=== PATIENT | female | born 1975 | race Caucasian/White ===

== ENCOUNTER 2016-12-23 18:42 | Inpatient (IN) | payer BC ==
[2016-12-23 18:47] VITALS: BMI 25.7
--- NOTE | 2016-12-23 19:16 | PDOC ---
History of Present Illness - General Chief Complaint: Vaginal Bleeding Stated Complaint: ABDOMINAL PAIN Time Seen by Provider: 12/23/16 19:14 - History of Present Illness Initial Comments: 12/23/16 19:16 Past History - Past Medical History Allergies/Adverse Reactions: Allergies Allergy/AdvReac Type Severity Reaction Status Date / Time meperidine HCl [From Demerol] AdvReac Vomiting Verified 12/23/16 18:47 Home Medications: Ambulatory Orders Levothyroxine [Synthroid -] 112 mcg PO DAILY 02/23/14 Alprazolam 0.5 mg PO DAILY 05/26/15 Mesalamine [Apriso] 4 cap PO DAILY 05/26/15 Olopatadine HCl [Pataday] 1 drop IO DAILY 05/26/15 GI Disorders: Yes (ULCERATIVE COLITIS, CHRONIC ULCERATIVE PROCTITIS) Seizures: Yes Thyroid Disease: Yes (HYPO) - Surgical History Orthopedic Surgery: Yes (LT KNEE) - Suicide/Smoking/Psychosocial Hx Smoking Status: No Smoking History: Never smoked Have you smoked in the past 12 months: No Number of Cigarettes Smoked Daily: 0 Hx Alcohol Use: No Drug/Substance Use Hx: No Substance Use Type: None *Physical Exam - Vital Signs Last Vital Signs Temp Pulse Resp BP Pulse Ox 97.9 F 76 20 121/68 99 12/23/16 18:44 12/23/16 18:44 12/23/16 18:44 12/23/16 18:44 12/23/16 18:44
[2016-12-23] MEDS ORDERED: ONDANSETRON 4 MG/2 ML VIAL IVPUSH ONE (19:22)
[2016-12-23] MEDS ORDERED: KETOROLAC TROMETHAMINE 30 MG/1 ML VIAL IVPUSH ONE (19:22)
[2016-12-23] MEDS ORDERED: LACTATED RINGERS SOLUTION 1,000 ML IV SCH ×3 (19:30→23:45)
[2016-12-23] MEDS ORDERED: KETOROLAC TROMETHAMINE 30 MG/1 ML VIAL ONE ×2 (19:38→23:45)
[2016-12-23] MEDS ORDERED: ONDANSETRON 4 MG/2 ML VIAL ONE ×2 (19:38→23:30)
[2016-12-23] MEDS ORDERED: morphine CARPU-JECT 2 MG/1 ML DISP.SYRIN IVPUSH ONE (19:42)
[2016-12-23] MEDS ORDERED: morphine CARPU-JECT 2 MG/1 ML DISP.SYRIN ONE (19:43)
[2016-12-23 19:44] LABS: BASOPHIL 0.3 % (0-2.0); EOSINOPHIL 1.1 % (0-4.5); MCH 29.5 pg (25.7-33.7); MCHC 34.2 g/dl (32.0-36.0); MEAN CELL VOLUME 86.2 fl (80-96); MEAN PLT VOLUME 7.2 fl (7.5-11.1); NEUTROPHILS 83.1 % (42.8-82.8); PLATELET COUNT 315 K/MM3 (134-434); RDW 12.1 % (11.6-15.6); WHITE BLOOD COUNT 11.4 K/mm3 (4.0-10.0)
--- NOTE | 2016-12-23 19:47 | PDOC ---
History of Present Illness - History of Present Illness Initial Comments: 12/23/16 19:41 CHIEF COMPLAINT: miscarriage HISTORY OF PRESENT ILLNESS: 40 yo A1 8 week F with hx of ulcerative colitis presents to ED with vaginal bleeding and cramping since last night. Patient reports she starting spotting last night and the cramping began this morning and "got unbearable this afternoon." Patient states her LMP was 10/08 and EGA by ultrasound dating was 8 weeks today at her OB MD Beach's office around 3:30-4pm today. Patient reports Dr. Beach told her she was "definitely having a miscarriage" and that it would pass, but tonight when she went home the pain was so unbearable she called him again and she was informed that she "should get it suctioned out instead of taking the medication to get it out." Patient reports she had a miscarriage approximately 10 years ago at 6 wks but "it wasn't like this at all." PAST MEDICAL HISTORY: Denies past medical history FAMILY HISTORY: Denies SOCIAL HISTORY: Denies tobacco, alcohol, illicit drug use. SURGICAL HISTORY: knee surgeries ALLERGIES: Demerol REVIEW OF SYSTEMS General/Constitutional: Denies fever or chills. Denies weakness, weight change. HEENT: Denies change in vision. Denies ear pain or discharge. Denies sore throat. Cardiovascular: Denies chest pain or shortness of breath. Respiratory: Denies cough, wheezing, or hemoptysis. Gastrointestinal: Significant abdominal cramping. Genitourinary: Vaginal bleeding since last night. Musculoskeletal: Denies joint or muscle swelling or pain. Denies neck or back pain. Skin and breasts: Denies rash or easy bruising. Neurologic: Denies headache, vertigo, loss of consciousness, or loss of sensation. PHYSICAL EXAM General Appearance: Very uncomfortable appearing, writing in pain. HEENT: EOMI, PERRLA. No conjunctival pallor. No photophobia, scleral icterus. Respiratory/Chest: Lungs CTAB. No shortness of breath, chest tenderness, respiratory distress, accessory muscle use. No crackles, rales, rhonchi, stridor , wheezing, dullness Cardiovascular: RRR. S1, S2. Vascular Pulses: Dorsalis-Pedis (R): 2+, Dorsalis-Pedis (L): 2+ Gastrointestinal/Abdominal: Normal bowel sounds. Abdomen soft, non-distended. No tenderness or rebound tenderness. No organomegaly, pulsatile mass, guarding , hernia, hepatomegaly, splenomegaly. Genitourinary: Active vaginal bleeding. Musculoskeletal/Extremities: Normal inspection. FROM of all extremities, normal capillary refill. Pelvis Stable. No CVA tenderness. No tenderness to extremities, pedal edema, swelling, erythema or deformity. Integumentary: Appropriate color, dry, warm. 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 Fully oriented, alert. Appropriate mood/affect. Motor strength 5/5. No appreciable EOM palsy, facial droop or sensory deficit. <Arabella Lima - Last Filed: 12/23/16 21:20> <Alejandrina Miller - Last Filed: 12/23/16 22:40> - General Chief Complaint: Vaginal Bleeding Stated Complaint: ABDOMINAL PAIN Time Seen by Provider: 12/23/16 19:14 Past History - Past Medical History GI Disorders: Yes (ULCERATIVE COLITIS, CHRONIC ULCERATIVE PROCTITIS) Seizures: Yes Thyroid Disease: Yes (HYPO) - Surgical History Orthopedic Surgery: Yes (LT KNEE) - Suicide/Smoking/Psychosocial Hx Smoking Status: No Smoking History: Never smoked Have you smoked in the past 12 months: No Number of Cigarettes Smoked Daily: 0 Hx Alcohol Use: No Drug/Substance Use Hx: No Substance Use Type: None <Arabella Lima - Last Filed: 12/23/16 21:20> <Alejandrina Miller - Last Filed: 12/23/16 22:40> - Past Medical History Allergies/Adverse Reactions: Allergies Allergy/AdvReac Type Severity Reaction Status Date / Time meperidine HCl [From Demerol] AdvReac Vomiting Verified 12/23/16 18:47 Home Medications: Ambulatory Orders Levothyroxine [Synthroid -] 112 mcg PO DAILY 02/23/14 Alprazolam 0.5 mg PO DAILY 05/26/15 Mesalamine [Apriso] 4 cap PO DAILY 05/26/15 Olopatadine HCl [Pataday] 1 drop IO DAILY 05/26/15 *Physical Exam - Vital Signs Last Vital Signs Temp Pulse Resp BP Pulse Ox 97.9 F 76 20 121/68 99 12/23/16 18:44 12/23/16 18:44 12/23/16 18:44 12/23/16 18:44 12/23/16 18:44 <Arabella Lima - Last Filed: 12/23/16 21:20> - Vital Signs Last Vital Signs Temp Pulse Resp BP Pulse Ox 97.9 F 76 20 121/68 99 12/23/16 18:44 12/23/16 18:44 12/23/16 18:44 12/23/16 18:44 12/23/16 18:44 <Alejandrina Miller - Last Filed: 12/23/16 22:40> ED Treatment Course - LABORATORY CBC & Chemistry Diagram: 12/23/16 19:30 12/23/16 19:30 <Arabella Lima - Last Filed: 12/23/16 21:20> - LABORATORY CBC & Chemistry Diagram: 12/23/16 19:30 12/23/16 19:30 - ADDITIONAL ORDERS Additional order review: Laboratory Results 12/23/16 12/23/16 12/23/16 19:40 19:30 19:30 PT with INR 12.60 H INR 1.12 PTT (Actin FS) 28.2 Sodium Potassium Chloride Carbon Dioxide Anion Gap BUN Creatinine Creat Clearance w eGFR Random Glucose Calcium Total Bilirubin AST ALT Alkaline Phosphatase Total Protein Albumin Beta HCG, Quant 5778.3 Blood Type A POSITIVE Antibody Screen Negative 12/23/16 19:30 PT with INR INR PTT (Actin FS) Sodium 137 Potassium 3.6 Chloride 105 Carbon Dioxide 24 Anion Gap 8 BUN 9 Creatinine 0.6 Creat Clearance w eGFR > 60 Random Glucose 125 H D Calcium 8.7 Total Bilirubin 0.4 D AST 19 ALT 23 Alkaline Phosphatase 45 Total Protein 7.1 Albumin 4.1 Beta HCG, Quant Blood Type Antibody Screen 12/23/16 19:30 RBC 4.20 MCV 86.2 MCHC 34.2 RDW 12.1 MPV 7.2 L Neutrophils % 83.1 H D Lymphocytes % 10.9 D Monocytes % 4.6 Eosinophils % 1.1 Basophils % 0.3 - Medications Given in the ED: ED Medications Discontinued Medications Generic Name Dose Route Start Last Admin Trade Name Freq PRN Reason Stop Dose Admin Hydromorphone HCl 0.5 mg 12/23/16 19:56 12/23/16 21:00 Dilaudid Injection - IVPUSH 12/23/16 19:57 0.5 mg ONCE ONE Administration Hydromorphone HCl 1 mg 12/23/16 20:13 12/23/16 20:47 Dilaudid Injection - IVPUSH 12/23/16 20:14 1 mg ONCE ONE Administration Hydromorphone HCl 1 mg 12/23/16 21:19 12/23/16 21:29 Dilaudid Injection - IVPUSH 12/23/16 21:20 1 mg ONCE ONE Administration Ketorolac Tromethamine 30 mg 12/23/16 19:22 12/23/16 19:35 Toradol Injection - IVPUSH 12/23/16 19:23 30 mg ONCE ONE Administration Morphine Sulfate 2 mg 12/23/16 19:42 12/23/16 20:26 Morphine Injection - IVPUSH 12/23/16 19:43 2 mg ONCE ONE Administration Ondansetron HCl 8 mg 12/23/16 19:22 12/23/16 19:50 Zofran Injection IVPUSH 12/23/16 19:23 8 mg ONCE ONE Administration <Alejandrina Miller - Last Filed: 12/23/16 22:40> Medical Decision Making - Medical Decision Making 12/23/16 20:10 40 yo 8 week F presents to ED with vaginal bleeding and cramping since last night. -CBC, CMP, PT/PTT/INR, T&S -LR -Toradol, morphine for pain control -Germán Discussed case with on-call OB MD Loaiza. Dr. Loaiza states she will come in to take patient to OR. Patient reassessed, still in significant amount of pain. -Dilaudid 0.5 Patient reassessed 20 minutes later, still writing in significant amount of pain -Dilaudid 1 mg 12/23/16 20:30 Patient reassessed, at this time pain is controlled. 12/23/16 21:20 Dr. Loaiza evaluated patient in ED. Patient will be transferred to OR on arrival of surgical team. <Arabella Lima - Last Filed: 12/23/16 21:20> *DC/Admit/Observation/Transfer <Arabella Lima - Last Filed: 12/23/16 21:20> - Discharge Dispostion Admit: Yes <Alejandrina Miller - Last Filed: 12/23/16 22:40> Diagnosis at time of Disposition: Incomplete spontaneous
[2016-12-23] MEDS ORDERED: HYDROmorphone HCL CARPU-JECT 1 MG/1 ML DISP.SYRIN IVPUSH ONE ×3 (19:56→21:19)
[2016-12-23] MEDS ORDERED: HYDROmorphone HCL CARPU-JECT 1 MG/1 ML DISP.SYRIN ONE ×3 (19:57→21:21)
[2016-12-23 20:04] LABS: INR 1.12 (0.82-1.09); PROTHROMBIN TIME (PATIENT) 12.6 SEC (9.98-11.88)
[2016-12-23 20:06] LABS: ACTIVATED PTT 28.2 SECONDS (26.9-34.4)
[2016-12-23 20:17] LABS: ALBUMIN 4.1 g/dl (3.4-5.0); ALK PHOS 45 U/L (45-117); ANION GAP 8 (8-16); BILIRUBIN,TOTAL 0.4 mg/dL (0.2-1.0); CALCIUM 8.7 mg/dL (8.5-10.1); CO2 24 mmol/L (21-32); CREATININE 0.6 mg/dL (0.55-1.02); GLUCOSE,RANDOM 125 mg/dL (74-106); SGOT/AST 19 U/L (15-37); SGPT/ALT 23 U/L (12-78); TOT PROT 7.1 g/dl (6.4-8.2)
--- NOTE | 2016-12-23 22:28 | CON.OBG ---
Consult Consult Specialty:: OBGYN Referred by:: Arabella Lima Reason for Consultation:: Abdominal pain in - History of Present Illness Chief Complaint: Abdominal pain with vaginal bleeding History of Present Illness: 40 yo , presents to ER c/o vaginal bleeding in . She also c/o severe abdominal pain. She admits to talk to private OB /ROOM CLERK today who recommended a suction D&C. - History Source History Provided By: Patient Limitations to Obtaining History: No Limitations - Past Medical History ...: Yes - Past Surgical History Past Surgical History: Yes: None - Alcohol/Substance Use Hx Alcohol Use: No History of Substance Use: reports: None - Smoking History Smoking history: Never smoked Have you smoked in the past 12 months: No Aproximately how many cigarettes per day: 0 - Social History History of Recent Travel: No Home Medications - Allergies Allergies/Adverse Reactions: Allergies Allergy/AdvReac Type Severity Reaction Status Date / Time meperidine HCl [From Demerol] AdvReac Vomiting Verified 12/23/16 18:47 - Home Medications Home Medications: Ambulatory Orders Levothyroxine [Synthroid -] 112 mcg PO DAILY 02/23/14 Alprazolam 0.5 mg PO DAILY 05/26/15 Mesalamine [Apriso] 4 cap PO DAILY 05/26/15 Olopatadine HCl [Pataday] 1 drop IO DAILY 05/26/15 Family Disease History - Family Disease History Family History: Unremarkable Review of Systems - Review of Systems Constitutional: reports: No Symptoms Eyes: reports: No Symptoms HENT: reports: No Symptoms Neck: reports: No Symptoms Cardiovascular: reports: No Symptoms Respiratory: reports: No Symptoms Gastrointestinal: reports: No Symptoms Genitourinary: reports: No Symptoms Breasts: reports: No Symptoms Reported Musculoskeletal: reports: No Symptoms Neurological: reports: No Symptoms Endocrine: reports: No Symptoms Hematology/Lymphatic: reports: No Symptoms Psychiatric: reports: No Symptoms Pain Intensity: 8 Physical Exam-ROOM CLERK Vital Signs: Vital Signs Temperature 97.9 F 12/23/16 18:44 Pulse Rate 76 12/23/16 18:44 Respiratory Rate 20 12/23/16 18:44 Blood Pressure 121/68 12/23/16 18:44 O2 Sat by Pulse Oximetry (%) 99 12/23/16 18:44 Constitutional: Yes: Well Nourished Eyes: Yes: Conjunctiva Clear HENT: Yes: Atraumatic Neck: Yes: Supple Cardiovascular: Yes: Regular Rate and Rhythm Respiratory: Yes: Regular Gastrointestinal: Yes: Normal Bowel Sounds External Genitalia: Yes: Bleeding Vaginal Exam: Yes: Bleeding Cervix: Yes: Bleeding Neurological: Yes: Alert, Oriented ...Motor Strength: WNL Psychiatric: Yes: Alert, Oriented Labs: CBC, BMP 12/23/16 19:30 12/23/16 19:30 Problem List - Problems (1) Incomplete with delayed or excessive hemorrhage Code(s): O03.1 - DELAYED OR EXCESSIVE HEMOR FOLLOWING INCMPL SPON Assessment/Plan Incomplete Vaginal bleeding Pre op for suction D&C
--- NOTE | 2016-12-23 22:33 | OP ---
Operative Note - Note: Operative Date: 12/23/16 Pre-Operative Diagnosis: Incomplete Operation: Suction D&C Findings: Open cervical os with large blood clot at the vagina Post-Operative Diagnosis: Same as Pre-op Surgeon: Christa Loaiza Anesthesia: General Specimens Removed: Product of conception Estimated Blood Loss (mls): 50 Operative Report Dictated: Yes
[2016-12-23] MEDS ORDERED: SCOPOLAMINE HYDROBROMIDE 1 PATCH PATCH.TD72 ONE (23:10)
[2016-12-23] MEDS ORDERED: PROPOFOL 20 ML ONE (23:12)
[2016-12-23] MEDS ORDERED: MIDAZOLAM HCL 2 MG/2 ML SINGLE DOSE VIAL ONE (23:12)
[2016-12-23] MEDS ORDERED: DEXAMETHASONE SOD PHOSPHATE 4 MG/1 ML VIAL ONE (23:26)
[2016-12-23] MEDS ORDERED: ceFAZolin SODIUM 1 GM VIAL ONE (23:27)
--- NOTE | 2016-12-23 23:51 | DS ---
Physical Examination Vital Signs: Vital Signs Temperature 97.3 F L 12/23/16 22:30 Pulse Rate 62 12/23/16 22:30 Respiratory Rate 18 12/23/16 22:30 Blood Pressure 114/58 12/23/16 22:30 O2 Sat by Pulse Oximetry (%) 99 12/23/16 18:44 Constitutional: Yes: Well Nourished Eyes: Yes: Conjunctiva Clear HENT: Yes: Atraumatic Neck: Yes: Supple Cardiovascular: Yes: Regular Rate and Rhythm Respiratory: Yes: Regular Gastrointestinal: Yes: Normal Bowel Sounds Neurological: Yes: Alert, Oriented ...Motor Strength: WNL Psychiatric: Yes: Alert, Oriented Discharge Summary Reason For Visit: INCOMPLETE WITH DELAYED OR EXCESSIVE Current Active Problems Incomplete with delayed or excessive hemorrhage (Acute) Incomplete miscarriage (Acute) Procedures: Principal: Suction D&C Hospital Course: Patient admitted for incomplete . She was taken to operating room for suction D&C. Condition: Good - Instructions Diet, Activity, Other Instructions: Regular diet No douching, no sexual intercourse x 2 weeks F/U with MD in 2 weeks Referrals: Glenys Tellez [Primary Care Provider] - Disposition: HOME - Home Medications Comprehensive Discharge Medication List: Ambulatory Orders Levothyroxine [Synthroid -] 112 mcg PO DAILY 02/23/14 Alprazolam 0.5 mg PO DAILY 05/26/15 Mesalamine [Apriso] 4 cap PO DAILY 05/26/15 Olopatadine HCl [Pataday] 1 drop IO DAILY 05/26/15
[2016-12-23] MEDS ORDERED: PROMETHAZINE HCL 25 MG/1 ML VIAL IVPUSH PRN (23:55)
[2016-12-24] MEDS ORDERED: ACETAMINOPHEN 325 MG TABLET (FP) PO ONE (00:25)
[2016-12-24 01:49] VITALS: BP 110/63; PULSE 56; TEMP 97.5
--- NOTE | 2016-12-24 16:58 | OP ---
DATE OF OPERATION: 12/23/2016 PREOPERATIVE DIAGNOSIS: Incomplete . POSTOPERATIVE DIAGNOSIS: Incomplete . PROCEDURE: Suction dilation and curettage. SURGEON: Christa Loaiza M.D. ANESTHESIA: General. COMPLICATIONS: None. ESTIMATED BLOOD LOSS: 50 mL. PROCEDURE: Patient was taken to the operating room where general anesthesia was administered. Patient was then placed in lithotomy position. She was then prepped and draped in proper sterile fashion. A weighted speculum was placed in the vagina. The anterior lip of the cervix was grasped with a single-tooth tenaculum. Then there were some clots noted at the vagina. Then the suction curet was then gently introduced into the uterine cavity. The suction device was then activated, and the curet was rotated to clear the uterus of all products of conception. Then a sharp curettage was then performed. The suction curet was then reintroduced to clear the uterus of all remaining products of conception. Then the instruments were removed. The patient was taken out of lithotomy position. She was taken to PACU in stable condition. Pathology: Products of conception. Mu [id number]
--- NOTE | 2016-12-26 10:21 | PATH ---
Surgical Pathology Report Patient Name: LYNN LIM Med. Rec. 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 Specimen(s) Received UTERINE CONTENTS FRESH FOR CYTOGENETICS TESTING Clinical History Incomplete Final Diagnosis UTERINE CONTENTS, EVACUATION: CHORIONIC VILLI CONSISTENT WITH PRODUCTS OF CONCEPTION. Comment: Chromosome analysis is pending, and a report will follow. Electronically Signed Bryce Valencia M.D. Gross Description Received fresh labeled "uterine content," is a 10.0 x 6.0 x 1.2 cm aggregate of red-brown soft tissue fragments admixed with blood clot. Villous tissue is identified. No definite somatic tissue is identified. A product support representative portion of villous tissue is placed in RPMI solution and sent for genetic studies. An additional product support representative portion is submitted in one cassette. /12/24/2016 saudi12/24/2016
== END 2016-12-24 03:30 | disposition home or self-care (01) | DRG 770 ==
LOC: JER 18:42 → J3W 22:40
PROVIDERS: ADMIT Obstetrics & Gynecology; ATTEND Obstetrics & Gynecology
PROC: 10D17ZZ Extraction of Products of Conception, Retained, Via Natural or Artificial Opening (ICD-10-PCS; principal; 2016-12-23 23:23)
DX: O03.1 Delayed or excessive hemorrhage following incomplete spontaneous abortion (principal)
CPT/HCPCS: 36415; 80053; 84702; 85025; 85610; 85730; 86850; 86900; 86901; 88305-TC; 94760; 99282-25

== ENCOUNTER 2018-04-16 07:10 | Inpatient (IN) | payer BC ==
[2018-04-16] MEDS ORDERED: DINOPROSTONE 10 MG VAGINAL SUPPOSITORY VG ONE (08:00)
[2018-04-16 08:32] VITALS: BMI 30.2
--- NOTE | 2018-04-16 08:56 | PN ---
Progress Note (short form) - Note Progress Note: Risks / benefits cervidil IOL discussed Cx / -3 Cervidil placed in posterior fornix Category I FHT Patient tolerated well Will continue to monitor
[2018-04-16] MEDS ORDERED: TUBERCULIN PPD 5 TU/0.1ML SYRINGE (IN PATIENT USE ONLY) ID ONE (09:00)
[2018-04-16 09:54] LABS: BASO % 0.3 % (0-2.0); EOS % 2.5 % (0-4.5); HEMATOCRIT 33.1 % (32.4-45.2); HEMOGLOBIN 11.7 GM/dL (10.7-15.3); LYMPH % 16.5 % (8-40); MCH 31.3 pg (25.7-33.7); MCHC 35.3 g/dl (32.0-36.0); MEAN CELL VOLUME 88.9 fl (80-96); MEAN PLT VOLUME 9.5 fl (7.5-11.1); NEUT % 71.7 % (42.8-82.8); PLATELET COUNT 231 K/MM3 (134-434); RBC 3.73 M/mm3 (3.60-5.2); RDW 12.9 % (11.6-15.6); WHITE BLOOD COUNT 8.5 K/mm3 (4.0-10.0)
[2018-04-16 10:13] LABS: INR 0.92 (0.83-1.09); PROTHROMBIN TIME (PATIENT) 10.8 SEC (9.7-13.0)
[2018-04-16 10:15] LABS: ACTIVATED PTT 23.5 SECONDS (25.2-36.5)
[2018-04-16 10:40] LABS: ANION GAP 11 MMOL/L (8-16); BLOOD UREA NITROGEN 12 mg/dL (7-18); CALCIUM 8.8 mg/dL (8.5-10.1); CHLORIDE 107 mmol/L (98-107); CO2 20 mmol/L (21-32); CREATININE 0.7 mg/dL (0.55-1.3); GLUCOSE,RANDOM 96 mg/dL (74-106); POTASSIUM 3.8 mmol/L (3.5-5.1); SODIUM 138 mmol/L (136-145)
--- NOTE | 2018-04-16 15:06 | HP ---
Past Medical History - Primary Care Physician PCP:: Guilherme Sexton - Admission Chief Complaint: 40 weeks, AMA, hypothyroidism for cervidil induction History of Present Illness: 42 yo f g 3 p0 0 2 0 40.1 weeks with hx of hypothyroidism admitted for cervidil induction, no pain, cx 1 cm 50 vx -3 mi ,fhr cat 1, no contraction .cervidil risks has discussed with patient and ulternatives explained History Source: Patient Limitations to Obtaining History: No Limitations - Past Medical History ...: 3 ...Para: 0 ...Spon : 2 ...LMP: 07/09/17 ...EDC by Sono: 04/15/18 Endocrine: Yes: Hypothyroidism - Past Surgical History Past Surgical History: Yes: None Hx Myomectomy: No Hx Transabdominal Cerclage: No - Smoking History Smoking history: Never smoked Have you smoked in the past 12 months: No Aproximately how many cigarettes per day: 0 - Alcohol/Substance Use Hx Alcohol Use: No History of Substance Use: reports: None - Social History Usual Living Arrangement: Yes: With Spouse History of Recent Travel: No Home Medications - Allergies Allergies/Adverse Reactions: Allergies Allergy/AdvReac Type Severity Reaction Status Date / Time meperidine HCl [From Demerol] AdvReac Vomiting Verified 12/23/16 18:47 - Home Medications Home Medications: Ambulatory Orders Levothyroxine [Synthroid -] 125 mcg PO DAILY 02/23/14 Review of Systems - Review of Systems Constitutional: reports: No Symptoms Eyes: reports: No Symptoms HENT: reports: No Symptoms Neck: reports: No Symptoms Cardiovascular: reports: No Symptoms Respiratory: reports: No Symptoms Gastrointestinal: reports: No Symptoms Genitourinary: reports: No Symptoms Breasts: reports: No Symptoms Reported Musculoskeletal: reports: No Symptoms Integumentary: reports: No Symptoms Neurological: reports: No Symptoms Endocrine: reports: No Symptoms Hematology/Lymphatic: reports: No Symptoms Psychiatric: reports: No Symptoms Physical Exam - Maternity Vital Signs: Vital Signs Temperature 98.3 F 04/16/18 11:00 Pulse Rate 85 04/16/18 13:00 Respiratory Rate 20 04/16/18 13:00 Blood Pressure 124/78 04/16/18 13:00 O2 Sat by Pulse Oximetry (%) Constitutional: Yes: Well Nourished, No Distress, Calm Eyes: Yes: WNL, Conjunctiva Clear, EOM Intact HENT: Yes: WNL, Atraumatic, Normocephalic Neck: Yes: WNL, Supple, Trachea Midline Cardiovascular: Yes: WNL, Regular Rate and Rhythm Breast(s): Yes: WNL - Abdominal Exam/OB Fundal Height: 40 Number of Fetuses: Single Presentation: Vertex Contractions: Yes Regularity: Irritability Intensity: Unaware Monitor Mode: External Category: I Accelerations: Uniform Decelerations: None - Vaginal Exam/OB Vaginal Bleediing: No Speculum Exam: No Dilatation (cm): 1 cm Effacement (%): 50 Amniotic Membrane Status: Intact Presentation: Vertex/Position Station: -3 - Physical Exam Edema: Yes Edema: LLE: Trace, RLE: Trace Integumentary: Yes: WNL Deep Tendon Reflex Grade: Normal +2 Psychiatric: Yes: WNL - Labs Lab Results: CBC, BMP 04/16/18 08:55 04/16/18 08:55 Hemorrhage Risk Assessment - Risk Factors Medium Risk Factors: Yes: None High Risk Factors: Yes: None Risk Score: 1 Risk Level: Medium Risk Problem List - Problems (1) with maternal age 40 years or more Code(s): OPQ7233 - (2) Post-dates Code(s): O48.0 - POST-TERM (3) Hypothyroid in , antepartum Code(s): O99.280 - ENDO, NUTRITIONAL AND METAB DISEASES COMP PREG, UNSP TRI; E03.9 - HYPOTHYROIDISM, UNSPECIFIED (4) Elective induction of labor planned Code(s): [id number] - Assessment/Plan plan cervidil induction [facility]
[2018-04-16] MEDS ORDERED: BUTORPHANOL TARTRATE 1 MG/ML VIAL IVPUSH PRN (15:31)
[2018-04-16] MEDS ORDERED: PROMETHAZINE HCL 25 MG/1 ML VIAL IVPUSH ONE (15:31)
[2018-04-16] MEDS ORDERED: DEXTROSE 5%-LACTATED RINGERS 1,000 ML IV SCH (18:00)
[2018-04-16] MEDS ORDERED: FENTANYL/BUPIVACAINE/NS/PF - PCEA - 50 ML DISP.SYRIN EP ONE (20:12)
[2018-04-16] MEDS: FENTANYL/BUPIVACAINE/NS/PF - PCEA - 50 ML DISP.SYRIN EP SCH (20:50)
[2018-04-16] MEDS ORDERED: NALOXONE HCL 0.4 MG/ML VIAL IVPUSH PRN (20:56)
--- NOTE | 2018-04-16 21:02 | PN ---
Progress Note (short form) - Note Progress Note: cx2 cm 80 vx -3 mi, fhr cat1 , regular contraction, cervidil removed has epidural, comfortable Problem List - Problems (1) with maternal age 40 years or more Code(s): [id number] - (2) Post-dates Code(s): O48.0 - POST-TERM (3) Hypothyroid in , antepartum Code(s): O99.280 - ENDO, NUTRITIONAL AND METAB DISEASES COMP PREG, UNSP TRI; E03.9 - HYPOTHYROIDISM, UNSPECIFIED (4) Elective induction of labor planned Code(s): [id number] -
[2018-04-16] MEDS ORDERED: ELECTROLYTE-148 SOLN 1,000 ML IV SCH (21:15)
[2018-04-16] MEDS ORDERED: OXYTOCIN 15 UNITS in 0.9% NS 15 UNIT/250 ML INFUS.BAG IVPB SCH (22:15)
[2018-04-16] MEDS ORDERED: OXYTOCIN 30 UNITS in 0.9% NS 30 UNIT/500 ML INFUS.BAG IVPB ONE (22:37)
[2018-04-17] MEDS ORDERED: FENTANYL/BUPIVACAINE/NS/PF - PCEA - 50 ML DISP.SYRIN EP ONE ×5 (01:24→18:14)
--- NOTE | 2018-04-17 06:33 | PN ---
Progress Note (short form) - Note Progress Note: cx 2 to 3 cm 80 vx -3 , bulging membrane , arom, clear ,fhr cat 1 regular contraction Problem List - Problems (1) with maternal age 40 years or more Code(s): [id number] - (2) Post-dates Code(s): O48.0 - POST-TERM (3) Hypothyroid in , antepartum Code(s): O99.280 - ENDO, NUTRITIONAL AND METAB DISEASES COMP PREG, UNSP TRI; E03.9 - HYPOTHYROIDISM, UNSPECIFIED (4) Elective induction of labor planned Code(s): [id number] -
[2018-04-17] MEDS ORDERED: ELECTROLYTE-148 SOLN 1,000 ML IV SCH (07:15)
[2018-04-17] MEDS ORDERED: ONDANSETRON 4 MG/2 ML VIAL ONE ×2 (07:44→13:53)
[2018-04-17] MEDS: ONDANSETRON 4 MG/2 ML VIAL IVPB PRN ×2 (07:45→14:00)
--- NOTE | 2018-04-17 07:48 | PN ---
Progress Note (short form) - Note Progress Note: cx 3 cm 80 vx -2 mr, fhr cat 1, regular contraction, wants to continue with labor Problem List - Problems (1) with maternal age 40 years or more Code(s): [id number] - (2) Post-dates Code(s): O48.0 - POST-TERM (3) Hypothyroid in , antepartum Code(s): O99.280 - ENDO, NUTRITIONAL AND METAB DISEASES COMP PREG, UNSP TRI; E03.9 - HYPOTHYROIDISM, UNSPECIFIED (4) Elective induction of labor planned Code(s): [id number] -
[2018-04-17] MEDS: LEVOTHYROXINE NA 125 MCG TABLET (FP) PO SCH (07:52)
[2018-04-17] MEDS ORDERED: BUPIVACAINE HCL/PF 0.25% (2.5MG/ML) 10 ML VIAL ONE ×2 (11:43→14:52)
[2018-04-17] MEDS ORDERED: LIDOCAINE HCL 1% PRESERVATIVE FREE - 30ML VIAL ONE (20:07)
[2018-04-17] MEDS ORDERED: OXYTOCIN 20 UNITS in 0.9% NS 20 UNIT/1,000 ML INFUS.BAG IV ONE ×2 (20:26→22:56)
--- NOTE | 2018-04-17 21:04 | PN ---
Delivery - Delivery Vaginal Delivery: Shoulder/Difficult Maneuvers: delivered posterior shoulder Type of Anesthesia: Epidural Episiotomy/Laceration: 2nd degree EBL (cc): 300 Delivery, Single - Stages of Labor Date 1st Stage Initiatied: 04/17/18 Date 2nd Stage Initiated: 04/17/18 Time 2nd Stage Initiated: 16:45 Date of Delivery: 04/17/18 Time of Delivery: 20:32 Date Placenta Delivered: 04/17/18 Time Placenta Delivered: 20:54 - Condition of Infant Gender: Male Position: Right, OA Total Hours ROM (Hrs/Mins): 14 hours, 34 minutes - 5 Minutes Total Score: 9 - [place] Feeding Plan Initial Plan: Elected not to breastfeed exclusively throughout hospitalization Remarks - Remarks Remarks: Patient progressed to fully dilated and at 2031 via delivered a viable male in DEMETRIO position, APGARs 9,9. Weight and length unknown at this time. Head delivered spontaneously. Left anterior shoulder noted difficult to deliver , right posterior shoulder delivered with compound right arm; followed by left shoulder and body without difficulty. Infant with spontaneous cry and placed on mother's abdomen. Cord was clamped and cut. was handed to waiting nursing staff. Cord blood , gas, cord blood bank sample was obtained. Perineum and vagina examined, a second degreelaceration was noted and repaired in the usual fashion. Rectal exam revealed no sutures in rectum. Placenta was delivered spontaneously and intact. 20 units of pitocin in 1 L IVF was given. All counts correct x 2. Mother and infant stable in LDR. EBL 300cc.
[2018-04-17] MEDS ORDERED: BENZOCAINE 28 GM HEMORRHOIDAL OINTMENT TP PRN (21:08)
[2018-04-17] MEDS ORDERED: WITCH HAZEL 50% (TUCKS) 40 PAD/JAR PAD TP PRN (21:08)
[2018-04-17] MEDS ORDERED: BENZOCAINE 20% 57 GM BOTTLE TP PRN (21:08)
[2018-04-17] MEDS ORDERED: METHYLERGONOVINE MALEATE 0.2 MG/1 ML AMP IM PRN (21:08)
[2018-04-17] MEDS ORDERED: BISACODYL 10 MG SUPP.RECT RC PRN (21:08)
[2018-04-17 21:10] LABS: ARTERIAL BLOOD GAS BASE EXCESS -4.4 meq/l (-2-2); ARTERIAL BLOOD GAS PCO2 50.1 mmHg (35-45); ARTERIAL BLOOD GAS PO2 14.8 mmHg (80-100); ARTERIAL BLOOD GAS pH 7.28 (7.35-7.45)
[2018-04-17] MEDS ORDERED: OXYTOCIN 20 UNITS in 0.9% NS 20 UNIT/1,000 ML INFUS.BAG IV SCH (21:15)
[2018-04-17 21:20] LABS: VENOUS PC02 41.4 mmHg (38-52); VENOUS PH 7.33 (7.32-7.42)
[2018-04-17 21:21] LABS: VENOUS PO2 21.9 mmHg (28-48)
[2018-04-17] MEDS: FENTANYL/BUPIVACAINE/NS/PF - PCEA - 50 ML DISP.SYRIN EP SCH (22:42)
[2018-04-18] MEDS: ACETAMINOPHEN 325 MG TABLET (FP) PO PRN ×4 (00:13→21:41)
[2018-04-18] MEDS: IBUPROFEN 600 MG TABLET (FP) PO PRN ×4 (00:15→21:43)
--- NOTE | 2018-04-18 01:44 | PN ---
Post Progress Note - Subjective Subjective: Patient without acute complaints. Reports tolerating oral intake without nausea or vomiting. Ambulating without dizziness. Denies fevers or chills. Pain well controlled with oral pain medication. Passing flatus. Post Day: 1 Type of Delivery: Vital Signs: Vital Signs Temperature 99 F 04/17/18 23:49 Pulse Rate 98 H 04/17/18 23:49 Respiratory Rate 18 04/17/18 23:49 Blood Pressure 128/81 04/17/18 23:49 O2 Sat by Pulse Oximetry (%) 99 04/17/18 22:30 Breast Exam: Yes: Soft Uterus: Yes: Fundus Firm, Fundus below umbilicus Abdomen/GI: Yes: Abdomen soft, Passing flatus, Tolerating PO. No: Abdominal Distention, Tender Lochia: Yes: Serosa Lochia, amount: Small Extremities: Yes: Calves non-tender, Edema (trace) Perineum: Yes: Laceration Activity: Ambulating - Labs Labs: CBC WBC 8.5 K/mm3 (4.0-10.0) 04/16/18 08:55 RBC 3.73 M/mm3 (3.60-5.2) 04/16/18 08:55 Hgb 11.7 GM/dL (10.7-15.3) 04/16/18 08:55 Hct 33.1 % (32.4-45.2) 04/16/18 08:55 MCV 88.9 fl (80-96) 04/16/18 08:55 MCH 31.3 pg (25.7-33.7) 04/16/18 08:55 MCHC 35.3 g/dl (32.0-36.0) 04/16/18 08:55 RDW 12.9 % (11.6-15.6) 04/16/18 08:55 Plt Count 231 K/MM3 (134-434) D 04/16/18 08:55 MPV 9.5 fl (7.5-11.1) D 04/16/18 08:55 Absolute Neuts (auto) 6.1 K/mm3 (1.5-8.0) 04/16/18 08:55 Neutrophils % 71.7 % (42.8-82.8) 04/16/18 08:55 Lymphocytes % 16.5 % (8-40) D 04/16/18 08:55 Monocytes % 9.0 % (3.8-10.2) D 04/16/18 08:55 Eosinophils % 2.5 % (0-4.5) D 04/16/18 08:55 Basophils % 0.3 % (0-2.0) 04/16/18 08:55 Nucleated RBC % 0 % (0-0) 04/16/18 08:55 Assessment/Plan 42 yo PPD # 1 s/p , afebrile, vital signs stable, doing well 1. Continue routine care. 2. AM CBC with mild anemia; asymptomatic Elevated WBC. No signs of infection. will repeat in AM 3. Rh positive status, no rhogam indicated. 4. Encourage ambulation 5. Continue oral pain medication 6. Anticipate discharge home day #2
[2018-04-18] MEDS: LEVOTHYROXINE NA 125 MCG TABLET (FP) PO SCH (06:28)
[2018-04-18 09:02] LABS: BASO % 0.2 % (0-2.0); EOS % 0.1 % (0-4.5); HEMATOCRIT 26.5 % (32.4-45.2); HEMOGLOBIN 9.1 GM/dL (10.7-15.3); LYMPH % 6.6 % (8-40); MCH 30.8 pg (25.7-33.7); MCHC 34.6 g/dl (32.0-36.0); NEUT % 86.1 % (42.8-82.8); PLATELET COUNT 176 K/MM3 (134-434); RBC 2.97 M/mm3 (3.60-5.2); RDW 12.9 % (11.6-15.6); WHITE BLOOD COUNT 18.5 K/mm3 (4.0-10.0)
[2018-04-18] MEDS ORDERED: SENNOSIDES/DOCUSATE COMBO (SENNA PLUS) TABLET (UD) PO PRN (22:00)
--- NOTE | 2018-04-18 22:27 | DS ---
Physical Exam-[employer] Vital Signs: Vital Signs Temperature 97.7 F 04/18/18 18:00 Pulse Rate 82 04/18/18 18:00 Respiratory Rate 20 04/18/18 18:00 Blood Pressure 104/56 L 04/18/18 18:00 O2 Sat by Pulse Oximetry (%) 99 04/17/18 22:30 Labs: CBC, BMP 04/18/18 08:00 04/16/18 08:55 Delivery - Delivery Vaginal Delivery: Shoulder/Difficult Maneuvers: delivered posterior shoulder Type of Anesthesia: Epidural Episiotomy/Laceration: 2nd degree EBL (cc): 300 Delivery, Single - Stages of Labor Date 1st Stage Initiatied: 04/17/18 Time 1st Stage Initiated: 06:30 Date 2nd Stage Initiated: 04/17/18 Time 2nd Stage Initiated: 16:45 Date of Delivery: 04/17/18 Time of Delivery: 20:32 Time Placenta Delivered: 20:54 - Condition of Director Fundraising/Registered Dental Assistant Rda Present: No Gender: Male Weight: 7 lb 5 oz Position: Right, OA Total Hours ROM (Hrs/Mins): 14 hours, 34 minutes - 5 Minutes Total Score: 9 1 Minute Total Score: 9 - Feeding Plan Initial Plan: Elected not to breastfeed exclusively throughout hospitalization Discharge Summary Reason For Visit: INDUCTION OF LABOR Current Active Problems Elective induction of labor planned (Acute) Hypothyroid in , antepartum (Acute) Post-dates (Acute) with maternal age 40 years or more (Acute) Procedures: Principal: Vaginal Delivery Other Procedures: Induction of labor Hospital Course: Patient was admitted for induction of labor for postdates She progressed to deliver via a viable male infant. PPD # 1 patient ambulated, voiding, passing gas, tolerating oral intake and with adequate pain control. She fulfilled all criteria for discharge PPD #2 Condition: Good - Instructions Diet, Activity, Other Instructions: Physical activity Resume your normal everyday activity as tolerated no heavy lifting or exercise until seen by your surgeon. You may walk unlimited henry of and climb stairs. You may resume driving the car when you feel safe and comfortable behind the wheel. No sexual activity as instructed. Wound care If you have a bandage, leave it on, and keep dry for 48-72 hours. After that time discard the outer bandage. If they are tapes on the skin under the out of bandage leave them in place. They will peel off in the next 7 to 10 days. Do Not Peel them off. You may shower the day after surgery. If there are tapes present on the skin, you may shower over them. Diet There are no dietary restrictions. Eat healthy, high-fiber foods. Drink 6 to 8 glasses of liquid each day. This will assist in keeping your bowels are regular. Pain management You may take Tylenol or acetaminophen or Ibuprofen (for example, Motrin, Advil etc.) from my pain prescription medication is ordered should be taken as prescribed for moderate to severe pain. Call MD for any of the following: Severe pain not relieved by medication Fever of 101 or higher Excessive bleeding or drainage on dressing Inability to urinate Referrals: Jaylin Reid MD [Staff Physician] - Disposition: HOME - Home Medications Comprehensive Discharge Medication List: Ambulatory Orders Levothyroxine [Synthroid -] 125 mcg PO DAILY 02/23/14
[2018-04-19] MEDS: LEVOTHYROXINE NA 125 MCG TABLET (FP) PO SCH (06:02)
[2018-04-19] MEDS: ACETAMINOPHEN 325 MG TABLET (FP) PO PRN ×2 (06:02→09:46)
[2018-04-19] MEDS: IBUPROFEN 600 MG TABLET (FP) PO PRN ×2 (06:04→09:47)
--- NOTE | 2018-04-19 06:58 | PN ---
Post Progress Note - Subjective Subjective: Patient without acute complaints. Reports tolerating oral intake without nausea or vomiting. Ambulating without dizziness. Denies fevers or chills. Pain well controlled with oral pain medication. Pumping colostrum. Passing flatus. Post Day: 2 Type of Delivery: Vital Signs: Vital Signs Temperature 97.6 F 04/18/18 22:00 Pulse Rate 75 04/18/18 22:00 Respiratory Rate 18 04/18/18 22:00 Blood Pressure 103/57 L 04/18/18 22:00 O2 Sat by Pulse Oximetry (%) 99 04/17/18 22:30 Breast Exam: Yes: Soft Uterus: Yes: Fundus Firm, Fundus below umbilicus Abdomen/GI: Yes: Abdomen soft, Passing flatus, Tolerating PO. No: Abdominal Distention, Tender Lochia: Yes: Serosa Lochia, amount: Small Extremities: Yes: Calves non-tender, Edema (trace) Perineum: Yes: Laceration Activity: Ambulating - Labs Labs: CBC WBC 18.5 K/mm3 (4.0-10.0) H 04/18/18 08:00 RBC 2.97 M/mm3 (3.60-5.2) L 04/18/18 08:00 Hgb 9.1 GM/dL (10.7-15.3) L 04/18/18 08:00 Hct 26.5 % (32.4-45.2) L D 04/18/18 08:00 MCV 89.0 fl (80-96) 04/18/18 08:00 MCH 30.8 pg (25.7-33.7) 04/18/18 08:00 MCHC 34.6 g/dl (32.0-36.0) 04/18/18 08:00 RDW 12.9 % (11.6-15.6) 04/18/18 08:00 Plt Count 176 K/MM3 (134-434) D 04/18/18 08:00 MPV 9.0 fl (7.5-11.1) 04/18/18 08:00 Absolute Neuts (auto) 16.0 K/mm3 (1.5-8.0) H 04/18/18 08:00 Neutrophils % 86.1 % (42.8-82.8) H D 04/18/18 08:00 Lymphocytes % 6.6 % (8-40) L D 04/18/18 08:00 Monocytes % 7.0 % (3.8-10.2) 04/18/18 08:00 Eosinophils % 0.1 % (0-4.5) D 04/18/18 08:00 Basophils % 0.2 % (0-2.0) 04/18/18 08:00 Nucleated RBC % 0 % (0-0) 04/18/18 08:00 Assessment/Plan 42 yo PPD # 2 s/p , afebrile, vital signs stable, mild asymptomatic anemia doing well 1. Will repeat WBC 2. Patient stable for discharge home today. 3. Patient encouraged to contact MD for: - Severe pain not controlled by oral pain medication - Fevers or chills - Nausea or vomiting, intolerance of oral intake 4. Patient to follow up in office in 4-6 weeks for visit
[2018-04-19 08:41] LABS: HEMATOCRIT 27.5 % (32.4-45.2); HEMOGLOBIN 9.3 GM/dL (10.7-15.3); MCH 30.5 pg (25.7-33.7); MEAN CELL VOLUME 89.7 fl (80-96); PLATELET COUNT 180 K/MM3 (134-434); RBC 3.06 M/mm3 (3.60-5.2); WHITE BLOOD COUNT 12.2 K/mm3 (4.0-10.0)
[2018-04-19 13:58] VITALS: BP 113/56; PULSE 73; TEMP 98.7
== END 2018-04-19 13:20 | disposition home or self-care (01) | DRG 807 ==
LOC: JLDR 07:10 → J3W 04-17 23:10
PROVIDERS: ADMIT Obstetrics & Gynecology; ATTEND Obstetrics & Gynecology
PROC: 0KQM0ZZ Repair Perineum Muscle, Open Approach (ICD-10-PCS; principal; 2018-04-17)
PROC: 10E0XZZ Delivery of Products of Conception, External Approach (ICD-10-PCS; 2018-04-17)
DX: O48.0 Post-term pregnancy (principal); Z37.0 Single live birth; O99.284 Endocrine, nutritional and metabolic diseases complicating childbirth; E03.9 Hypothyroidism, unspecified; O70.1 Second degree perineal laceration during delivery; O99.02 Anemia complicating childbirth; D64.9 Anemia, unspecified; Z3A.40 40 weeks gestation of pregnancy
CPT/HCPCS: 36415; 36600; 59409; 80048; 82803; 85025; 85027; 85610; 85730; 86593; 86850; 86900; 86901; 87389

== ENCOUNTER 2024-03-23 04:12 | Day surgery (SDC) | payer BC ==
[2024-03-22 12:49] VITALS: BMI 25.2
[2024-03-23] MEDS ORDERED: oxyCODONE HCL 5 MG TABLET PO PRN ×2 (10:14→12:37)
[2024-03-23] MEDS ORDERED: ONDANSETRON 4 MG/2 ML VIAL IVPUSH PRN ×2 (10:14→12:37)
[2024-03-23] MEDS ORDERED: LACTATED RINGERS SOLUTION 1,000 ML IV SCH (10:15)
[2024-03-23] MEDS ORDERED: LIDOCAINE HCL/PF 2% SDV 5ML VIAL ONE (10:50)
[2024-03-23] MEDS ORDERED: ONDANSETRON 4 MG/2 ML VIAL ONE (10:50)
[2024-03-23] MEDS ORDERED: KETOROLAC TROMETHAMINE 30 MG/1 ML VIAL ONE (10:50)
[2024-03-23] MEDS ORDERED: DEXAMETHASONE SOD PHOSPHATE 4 MG/1 ML VIAL ONE (10:50)
[2024-03-23] MEDS ORDERED: SUCCINYLCHOLINE CHLORIDE 200 MG/10 ML SYRINGE ONE (10:51)
[2024-03-23] MEDS ORDERED: PROPOFOL 20 ML ONE (10:52)
[2024-03-23] MEDS ORDERED: MIDAZOLAM HCL 2 MG/2 ML SINGLE DOSE VIAL ONE (10:53)
[2024-03-23] MEDS ORDERED: IBUPROFEN 600 MG TABLET (FP) PO PRN (12:37)
[2024-03-23] MEDS ORDERED: IBUPROFEN 800 MG/8 ML IJ IVPB PRN (12:37)
[2024-03-23] MEDS ORDERED: ELECTROLYTE-148 SOLN 1,000 ML IV SCH (12:45)
[2024-03-23 13:44] VITALS: RESP 20
[2024-03-23 14:55] VITALS: BP 110/64; PULSE 64; TEMP 97
== END 2024-03-23 14:50 | disposition home or self-care (01) ==
LOC: JASU-SURG 04:12
PROVIDERS: ATTEND Obstetrics & Gynecology
PROC: 0UBC8ZZ Excision of Cervix, Via Natural or Artificial Opening Endoscopic (ICD-10-PCS; principal; 2024-03-23 11:30)
DX: N93.9 Abnormal uterine and vaginal bleeding, unspecified (principal); N84.1 Polyp of cervix uteri
CPT/HCPCS: 81025; 86850; 86900; 86901; 88305-TC; 94760